=== PATIENT | female | born 1965 | race Caucasian/White ===

== ENCOUNTER 2016-09-16 22:28 | Emergency (ER) | payer OTHER ==
--- NOTE | ~2016-09-16 | CR253 ---
[facility] A Service of [facility] RADIOLOGY TEXT RESULTS PATIENT: JOHNNA DRUMMOND LOCATION: CFTX : 61 UNIT #: [id number] AGE: [address]: Abbey Nelson APRN SEX: F ORDER DR: [id number] [facility] [address] [place], [place] [address] [id number] E MR#: [id number] Acc #: [id number] NAME: JOHNNA DRUMMOND : 1965 SEX: F STUDY DATE/TIME: 09/16/2016 22:59 UNIT: [facility] ROOM: STUDY DESCRIPTION: CR Tibia and Fibula 2 Views Rt Attending Physician: Abbey Nelson A.P.R.N. Ordering Physician: Abbey Nelson A.P.R.N. Primary Care Physician: Lenore George M.D. MEDICAL IMAGING REPORT This report is preliminary unless electronic signature is present EXAM 2 views right tibia-fibula. DATE 09/16/2016 HISTORY Right knee and right tibia-fibula pain, soreness and swelling after falling today. COMPARISON Right knee radiographs 09/16/2016. FINDINGS No fracture. No dislocation. Knee and ankle joints appear appropriately aligned. No significant osteophytic change. No retained radiopaque foreign body is seen within the soft tissues. IMPRESSION Normal 2 views of the right tibia-fibula. Dictated by... Susan Pendleton M.D. THIS IS AN ELECTRONICALLY VERIFIED REPORT Susan Pendleton M.D. at 09/17/2016 4:20 AM NEAL/annmarie TD: 09/17/2016 04:04 JOB #: [id number] MEDICAL IMAGING REPORT Page 1 of 1 COPY
--- NOTE | ~2016-09-16 | CR173 ---
[facility] A Service of [facility] RADIOLOGY TEXT RESULTS PATIENT: JOHNNA DRUMMOND LOCATION: CFTX : 61 UNIT #: [id number] AGE: [address]: Abbey Nelson APRN SEX: F ORDER DR: [id number] [facility] [address] [facility] [place], [place] [address] [id number] E MR#: [id number] Acc #: [id number] NAME: JOHNNA DRUMMOND : 1965 SEX: F STUDY DATE/TIME: 09/16/2016 23:02 UNIT: [facility] ROOM: STUDY DESCRIPTION: CR Knee 3 Views Rt Attending Physician: Abbey Nelson A.P.R.N. Ordering Physician: Abbey Nelson A.P.R.N. Primary Care Physician: Lenore George M.D. MEDICAL IMAGING REPORT This report is preliminary unless electronic signature is present EXAM 3 views right knee. DATE 09/16/2016 HISTORY Right knee pain, soreness and swelling after falling today. COMPARISON Right tibia-fibula radiographs 09/16/2016. FINDINGS No fracture. No dislocation. No significant osteoarthritic change. No retained radiopaque foreign body. No joint effusion. IMPRESSION 1. Normal 3 views of the right knee. Dictated by... Susan Pendleton M.D. THIS IS AN ELECTRONICALLY VERIFIED REPORT Susan Pendleton M.D. at 09/17/2016 4:20 AM NEAL/annmarie TD: 09/17/2016 04:11 JOB #: [id number] MEDICAL IMAGING REPORT Page 1 of 1 COPY
[~2016-09-16 22:28] MED LIST: ALBUTEROL17 GM INH; CALAN SR PO; CIPRO PO; CLEOCIN PO; DOXYCYCLINE PO; FLEXERIL10 MG PO; FLURBIPROFEN100 MG PO; IBUPROFEN PO; IBUPROFEN800 MG PO; LEVOTHROID50 MCG PO; LIDOCAINE HC20 MG/M1 MM; LORTAB 10-3251 EACH PO; LORTAB 5/500 TA1 TA2 PO; LOTRISONE CREAM45 GM TOP; MEDROL PO; NABUMETONE PO; PHENERGAN PO; PHENERGAN25 MG PO; PYRIDIUM PO; RELPAX40 MG PO; TOPAMAX25 MG PO; TOPAMAX50 MG PO; TRAMADOL HCL50 M1 PO; ULTRAM PO; VICODIN 5/500 T1 TAB PO; VOLTAREN75 MG PO; ZOVIRAX PO
== END 2016-09-16 23:54 | disposition home or self-care (01) ==
LOC: CFTX 22:28
DX: S80.01XA Contusion of right knee, initial encounter (principal); X58.XXXA Exposure to other specified factors, initial encounter; Y92.009 Unspecified place in unspecified non-institutional (private) residence as the place of occurrence of the external cause
CPT/HCPCS: 29530; 73562; 73590; 99284

== ENCOUNTER 2016-09-24 21:33 | Emergency (ER) | payer OTHER | END 2016-09-24 21:36 | disposition home or self-care (01) | LOC: SED 21:33 | DX: S30.0XXA Contusion of lower back and pelvis, initial encounter (principal); J45.909 Unspecified asthma, uncomplicated; Z88.8 Allergy status to other drugs, medicaments and biological substances; Z88.0 Allergy status to penicillin; Z79.899 Other long term (current) drug therapy; W51.XXXA Accidental striking against or bumped into by another person, initial encounter; Y92.9 Unspecified place or not applicable | CPT/HCPCS: 99283 ==